=== PATIENT | female | born 1950 | race Hispanic/Latino ===

== ENCOUNTER 2020-10-28 | Emergency (ER) | payer MEDICARE, OTHER ==
[~2020-10-28] MED LIST: ATENOLOL50 MG PO; CARBAMAZEPIN200 MG PO; FOSAMAX PLUS PO; HYDROCHLORO25 MG/TAB PO; LEVOTHYROXIN50 MCG PO; METFORMIN500 MG PO; NORVASC2.5 MG PO; SIMVASTATIN40 MG PO
[2020-10-28 14:53] LABS: HEMATOCRIT 39.6 % (37.0-47.0); HEMOGLOBIN 12.8 g/dl (12.0-16.0); IMMATURE GRANULOCYTES 0.4 % (0.0-5.0); MEAN CELL VOLUME 97.3 fL CALC (80.0-100.0); MEAN CORPUSCULAR HGB 31.4 pG CALC (26.0-32.0); MEAN CORPUSCULAR HGB CONC 32.3 g/dL CAL (32.0-36.0); NEUT# 6.02 thou/uL (2.00-7.15); RED BLOOD COUNT 4.07 mill/uL (4.20-5.60); RED CELL DISTRI WIDTH 12.5 % (11.5-15.5)
[2020-10-28 15:06] LABS: ALBUMIN 4.8 g/dL (3.2-5.0); ALKALINE PHOSPHATASE 115 u/l (38-126); ANION GAP 12 (6-22 (CALC)); BILIRUBIN, TOTAL 0.5 mg/dL (0.0-1.4); BUN 21 mg/dL (8-23); BUN/CREATININE RATIO 21 (12-20 (CALC)); CARBON DIOXIDE 29 mmol/l (22-30); CHLORIDE 94 mmol/l (95-108); GFR 55 ML/MIN (>=60 (CALC)); GFR FOR AFR.AMER. > 60 ML/MIN (>=60 (CALC)); POTASSIUM 4.4 mmol/l (3.5-5.1); SGOT/AST 29 u/l (9-36); SODIUM 130 mmol/l (137-146); TOTAL PROTEIN 9.1 g/dL (6.3-8.2)
[2020-10-28 15:18] LABS: MYOGLOBIN 99 ng/mL (0 - 62)
[2020-10-28] MEDS ORDERED: NAPROXEN500 MG PO (16:38)
== END 2020-10-28 17:14 | disposition home or self-care (01) ==
PROVIDERS: Emergency Medicine
DX: S09.90XA Unspecified injury of head, initial encounter (principal); E87.1 Hypo-osmolality and hyponatremia; S60.511A Abrasion of right hand, initial encounter; I10 Essential (primary) hypertension; E11.9 Type 2 diabetes mellitus without complications; E78.5 Hyperlipidemia, unspecified; G40.909 Epilepsy, unspecified, not intractable, without status epilepticus; I69.998 Other sequelae following unspecified cerebrovascular disease; M62.422 Contracture of muscle, left upper arm; W18.30XA Fall on same level, unspecified, initial encounter; Y92.009 Unspecified place in unspecified non-institutional (private) residence as the place of occurrence of the external cause; Z86.12 Personal history of poliomyelitis

== ENCOUNTER 2022-11-05 19:25 | Emergency (ER) | payer MEDICARE, MEDICAID ==
[2022-11-05] VITALS (8 sets, daily range): BP systolic 124–175; BP diastolic 66–103
[~2022-11-05] VITALS: Ht 152.4 cm; Wt 65.0 kg
[~2022-11-05 19:25] MED LIST changes: +NAPROXEN500 MG PO
[2022-11-05] MEDS ORDERED: NAPROXEN500 MG PO (21:04)
== END 2022-11-05 21:12 | disposition home or self-care (01) ==
LOC: ED 19:25
DX: S96.912A Strain of unspecified muscle and tendon at ankle and foot level, left foot, initial encounter (principal); I10 Essential (primary) hypertension; E11.9 Type 2 diabetes mellitus without complications; E78.5 Hyperlipidemia, unspecified; G40.909 Epilepsy, unspecified, not intractable, without status epilepticus; Z79.84 Long term (current) use of oral hypoglycemic drugs; Z86.73 Personal history of transient ischemic attack (TIA), and cerebral infarction without residual deficits; Z86.12 Personal history of poliomyelitis; W01.0XXA Fall on same level from slipping, tripping and stumbling without subsequent striking against object, initial encounter